=== PATIENT | male | born 1975 | race Caucasian/White ===

== ENCOUNTER 2019-09-24 07:52 | Emergency (ER) | payer MEDICAID ==
[~2019-09-24] VITALS: Ht 185.4 cm; Wt 81.6 kg
[2019-09-24] MEDS ORDERED: OLANZAPINE 5 MG TABLET PO ONE (08:15)
[2019-09-24] MEDS ORDERED: OLANZAPINE 5 MG TABLET ONE (08:19)
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
[2019-09-24 08:32] LABS: BASOPHILS % (AUTO) 0.4 % (0.0-2.0); EOSINOPHILS # (AUTO) 0.1 K/uL (0.0-0.7); EOSINOPHILS % (AUTO) 1.2 % (0.0-7.0); HEMATOCRIT 34.7 % (36.7-47.1); HEMOGLOBIN 11.1 g/dL (12.5-16.3); LYMPHOCYTES % (AUTO) 16.8 % (20.5-51.5); MEAN CORPUSCULAR HEMOGLOBIN 23.3 uug (23.8-33.4); MEAN CORPUSCULAR HGB CONC 32 g/dL (32.5-36.3); MONOCYTES # (AUTO) 0.6 K/uL (2.0-10.0); MONOCYTES % (AUTO) 9.4 % (0.0-11.0); NEUTROPHILS # (AUTO) 4.4 K/uL (1.8-8.9); NEUTROPHILS % (AUTO) 72.2 % (38.5-71.5); PLATELET COUNT (AUTO) 344 K/uL (152-348); RED BLOOD CELL COUNT(AUTO) 4.75 MIL/uL (4.06-5.63)
[2019-09-24 08:39] LABS: CARBON DIOXIDE 24 mmol/L (21-32); CHLORIDE 102 mmol/L (98-107); CREATININE 0.8 mg/dL (0.6-1.3); GLUCOSE 104 mg/dL (74-106); POTASSIUM 3.8 mmol/L (3.5-5.1); UREA NITROGEN, BLOOD 13 mg/dL (7-18)
[2019-09-24 08:56] LABS: ALANINE AMINOTRANSFERASE 14 U/L (16-63); ALKALINE PHOSPHATASE 96 U/L (50-136); ASPARTATE AMINOTRANSFERASE 13 U/L (15-37); BILIRUBIN,DIRECT 0.1 mg/dL (0.0-0.2); BILIRUBIN,TOTAL 0.3 mg/dL (0.2-1.0); TOTAL PROTEIN, SERUM 7.2 g/dL (6.4-8.2)
[2019-09-24 08:58] LABS: ACETAMINOPHEN < 2.0 ug/mL (10-30)
[2019-09-24 09:06] LABS: LYMPHOCYTES % (MANUAL) 20 % (20-40); METAMYELOCYTES % 1 % (0-1); MONOCYTES % (MANUAL) 5 % (2-10); NEUTROPHILS % (MANUAL) 74 % (42-75)
--- NOTE | 2019-09-24 10:10 | NUR ---
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
[2019-09-24 10:37] LABS: ETHANOL < 3 MG/DL (0-0)
--- NOTE | 2019-09-24 10:52 | NUR ---
PATIENT IS MORE CALM NOW. HE IS RESTING COMFORTABLE IN NO DISTRESS. AWAITING TO HEAR FROM [facility]...
[2019-09-24 10:56] LABS: *BILIRUBIN,URIN NEGATIVE (NEGATIVE); *BLOOD, URINE NEGATIVE (NEGATIVE); *CLARITY,URINE CLEAR (CLEAR); *COLOR,URINE YELLOW (YELLOW); *KETONES,URINE NEGATIVE (NEGATIVE); *UROBILINOGEN,URINE 0.2 E.U./dl (NORMAL); LEUKOCYTE ESTERASE ,URINE NEGATIVE (NEGATIVE); NITRITE, URINE NEGATIVE (NEGATIVE); UGLUCOSE NEGATIVE (NEGATIVE)
[2019-09-24 11:50] LABS: *AMPHETAMINE, URINE NEGATIVE (NEGATIVE); *BARBITURATE, URINE NEGATIVE (NEGATIVE); *CANNABINOID, URINE POSITIVE (NEGATIVE); *COCCAINE, URINE NEGATIVE (NEGATIVE); *OPIATE, URINE NEGATIVE (NEGATIVE); *PHENCYCLIDINE SCREEN,URINE NEGATIVE (NEGATIVE)
--- NOTE | 2019-09-24 11:54 | NUR ---
PATIENT IS RESTING CVOMFORTABLY IN HIS ROOM. WAITING FOR ROOM ASSIGNMENT FROM [facility]. AIMEE CALLED THEM TWICE AND FAXED OVER SUMMARY TWICE.
--- NOTE | 2019-09-24 14:22 | NUR ---
I CALLED [facility] AGAIN AND NOW THEY WANT A DIFFERENT REPORT... I FAXED IT. WAITING FOR ROOM ASSIGNMENT. PATIENT ATE A PB SANDWICH AND DRANK SOME WATER.
--- NOTE | 2019-09-24 14:58 | NUR ---
IM ON THE PHONE AGAIN WITH [facility] TO CHECK ON STATUS AND THEY STATE THEY NEED FAX AGAIN SO I FAXED AGAIN.... SIX TIME IN TOTAL (FAXES)....
--- NOTE | 2019-09-24 15:49 | NUR ---
PATIENT SITTING UP EATING WARM MEAL. I SPOKE TO THE KITCHEN PORTER DEE DEE AT [facility] WHO ASSURED ME HE WILL HELP EXPEDIATE ADMISSION WEVE BEEN FAXING INFO TO THEM ALL DAY BUT NOT GETTING ANYWHERE WITH ADMISSION
--- NOTE | 2019-09-24 16:32 | NUR ---
I FINALLY GOT A BED NUMBER TO [facility] AND GAVE REPORT TO JONEL AT [phone] X [phone]. I THEN CALLED [facility] WHO GAVE ME AN ETA OF 2 HOURS...
--- NOTE | 2019-09-24 18:13 | NUR ---
Patient ate anothr sandwich. Awaiting for ambulace to transport pt to [facility].
--- NOTE | 2019-09-24 19:03 | NUR ---
hand off report given to honey nunes
--- NOTE | 2019-09-24 19:43 | NUR ---
Spoke with Laisha from [facility] transport Trip#[id number]. Original p/u time of 1845 was told that new ETA is 2144. Patient made aware. no further concerns at this time
--- NOTE | 2019-09-24 20:39 | NUR ---
Spoke with Senthil to cancel trip. Contacted [facility] and spoke with Jose to arrange transportation. ETA of 2129 Trip # [id number]. Patient made aware. No further concerns at this time
--- NOTE | 2019-09-24 21:48 | NUR ---
Provided patient with sandwich and fluids. Patient able to tolerate food. updated patient with plan. No further concerns at this time
--- NOTE | 2019-09-24 22:04 | NUR ---
[facility] 140 picked up patient in stable condition. All belongings taken with patient.
== END 2019-09-24 22:05 | disposition short-term general hospital (02) ==
LOC: ER 07:52
DX: F29 Unspecified psychosis not due to a substance or known physiological condition (principal); I25.2 Old myocardial infarction; F31.9 Bipolar disorder, unspecified; F20.9 Schizophrenia, unspecified; F17.200 Nicotine dependence, unspecified, uncomplicated; Z88.8 Allergy status to other drugs, medicaments and biological substances
CPT/HCPCS: 36415; 80048; 80076; 80307; 81001; 85007; 85025; 99285; G0480 ×2; G0481; 70030-TC; A4663